=== PATIENT | female | born 1975 | race Two or more races ===

== ENCOUNTER 2021-04-06 11:51 | Emergency (ER) | payer MEDICAID ==
[~2021-04-06] VITALS: Ht 157.5 cm; Wt 86.2 kg
[2021-04-06] MEDS ORDERED: cloNIDine HCL 0.1 MG TAB PO ONE (12:15)
[2021-04-06 13:27] LABS: Basophils # (auto) 0 10 ^3/uL (0-0.2); Basophils % (auto) 0.4 % (0.0-2.0); Eosinophils # (auto) 0 10 ^3/uL (0-0.8); Eosinophils % (auto) 0.6 % (0.0-7.0); Hematocrit 40.1 % (36.0-46.0); Hemoglobin 13.7 g/dL (12.2-16.2); Lymphocytes # (auto) 1.1 10 ^3/uL (0.4-5.4); Lymphocytes % (auto) 12.6 % (10.0-50.0); Mean Corpuscular Hemoglobin 30.3 pg (28.0-32.0); Mean Corpuscular Hgb Conc. 34.1 g/dL (32.0-36.0); Mean Corpuscular Volume 88.9 fL (80.0-100.0); Monocytes # (auto) 0.2 10 ^3/uL (0-1.3); Monocytes % (auto) 2.4 % (0.0-12.0); Neutrophils # (auto) 7.2 10 ^3/uL (1.6-8.6); Red Blood Cells 4.51 10^6/uL (4.0-5.20); Red Cell Distribution Width 13.1 % (11.8-14.3); White Blood Cell 8.5 10^3/uL (4.4-10.8)
[2021-04-06 13:56] LABS: Albumin 3.8 g/dL (3.4-5.0); Anion Gap 6 (5-15); Blood Urea Nitrogen 11 mg/dL (7-18); Calcium 8.9 mg/dL (8.5-10.1); Carbon Dioxide 24 mmol/L (21-32); Chloride 106 mmol/L (98-107); Glucose 128 mg/dL (74-106); Potassium 3.6 mmol/L (3.5-5.1); Sodium 136 mmol/L (136-145)
[2021-04-06 14:03] LABS: Alanine Aminotransferase 31 U/L (13-56); Alkaline Phosphatase 94 U/L (45-117); Aspartate Aminotransferase 15 U/L (15-37); BUN/Creatinine Ratio 17.2; GFR African American 130 mL/min; GFR Non-African American 107 mL/min; Total Protein 7.9 g/dL (6.4-8.2)
[2021-04-06 14:26] VITALS: BP 127/79
== END 2021-04-06 14:27 | disposition home or self-care (01) ==
LOC: ER 11:51
DX: I16.0 Hypertensive urgency (principal); I10 Essential (primary) hypertension; R42 Dizziness and giddiness
CPT/HCPCS: 36415; 80053; 84484; 85025; 93005